=== PATIENT | female | born 1955 | race Caucasian/White ===

== ENCOUNTER → 2017-08-06 07:21 | Emergency (ER) | payer SELFPAY ==
[~2017-08-06 07:21] MED LIST: PPD test dose* 5 TU/0.1 ML TEST (*USE PPD ORDER SET*) INTRADERM ONE; PPD test dose* 5 TU/0.1 ML TEST (*USE PPD ORDER SET*) ONE
== END | disposition home or self-care (01) ==
LOC: UCEAST 07:21 → OHEAST 07:21
DX: Z11.1 Encounter for screening for respiratory tuberculosis (principal)

== ENCOUNTER 2018-08-09 06:21 | Day surgery (SDC) | payer OTHER ==
[~2018-08-09 06:21] MED LIST changes: +Acetaminophen TAB* 325 MG PO PRN; +Buffered Lidocaine 0.9% SYRIN* 5 ML/SYR SYRINGE INTRADERM ONE; -PPD test dose* 5 TU/0.1 ML TEST (*USE PPD ORDER SET*) INTRADERM ONE; -PPD test dose* 5 TU/0.1 ML TEST (*USE PPD ORDER SET*) ONE
[2018-08-09] MEDS ORDERED: fentaNYL* 50 MCG/ML 2 ML VIAL (100 MCG VIAL) ONE (07:22)
[2018-08-09] MEDS ORDERED: Midazolam* 1 MG/ML 2 ML VIAL (2 MG) ONE (07:22)
[2018-08-09] MEDS ORDERED: Tetracaine 0.5% OPTH.SOL 4 ML* 1 DROP BTL ONE (08:30)
[2018-08-09] MEDS ORDERED: Lidocaine 1%* 5 ML VIAL ONE (08:30)
[2018-08-09] MEDS ORDERED: Neomycin/Polymy/Dex OPHTH.OIN* 3.5 GM ONE (08:30)
[2018-08-09] MEDS ORDERED: Cyclopentolate 1% OPTH.SOL* 2 ML BTL ONE (08:30)
[2018-08-09] MEDS ORDERED: Tropicamide 1% OPTH.SOL* BTL ONE (08:30)
[2018-08-09] MEDS ORDERED: Ketorolac 0.5% OPHTH (NF) 0.5 % 5 ML BTL ONE (08:30)
[2018-08-09] MEDS ORDERED: Phenylephrine 2.5% OPTH.SOL* 2 ML BTL ONE (08:30)
[2018-08-09 08:36] VITALS: BP 118/56
--- NOTE | 2018-08-10 02:18 | OP ---
DATE OF OPERATION: 08/09/18 - [facility] DATE OF : 51 SURGEON: Dr. Darren Rey. [employer] CERTIFIED NETWORK ASSOCIATE: None. ANESTHESIA: Topical with intravenous sedation. PRE-OP DIAGNOSIS: Cataract with astigmatism, right eye. POST-OP DIAGNOSIS: Cataract with astigmatism, right eye. OPERATIVE PROCEDURE: Phacoemulsification and cataract extraction with posterior chamber Toric intraocular lens implant, right eye. COMPLICATIONS: None. BLOOD LOSS: None. DESCRIPTION OF PROCEDURE: The patient was seen preoperatively in the holding area where she was placed in an upright position. A shakir was made at the 6 o' clock position of the cornea near the limbus in the right eye. The patient was subsequently brought to the operating room and given intravenous sedation and a drop of tetracaine to her right eye. The patient was prepped and draped in the usual sterile fashion for ophthalmic surgery and attention was directed into the right eye where a speculum was placed. A paracentesis was created at the 11 o'clock position and 0.1 cc of 1% preservative-free lidocaine was injected into the anterior chamber followed by DisCoVisc. The eye was digitally stabilized while a 2.75 mm keratome was used to create a triplanar clear corneal incision at the 9 o'clock position. A continuous curvilinear capsulorrhexis was created with a cystotome and Utrata forceps. BSS on a cannula was used to hydrodissect the lens from the capsule. Phacoemulsification was performed in a divide and conquer technique to create four fragments, which were removed. Residual cortical material was removed with irrigation and aspiration. Healon was used to inflate the capsular bag. A Nicholson marker was used to shakir the 82-degree axis at the limbus. An SN6AT4 10.5 diopter lens was folded and inserted into the capsular bag. A Sinskey hook was used to rotate the lens to appropriate axial alignment. Irrigation and aspiration were performed to remove viscoelastic from the eye. BSS on a cannula was used to hydrate the corneal stroma and seal the wound. At the end of the case, the lens was centered stable and axially aligned. The eye pressure appeared normal and the wound was water tight. The speculum was removed and topical Maxitrol ointment was placed on the surface of the eye. The eye was closed, patched, and shielded, and the patient was sent to the recovery room in stable condition with postoperative instructions and followup appointment given. [id number]/[facility] #: [id number] ANTONIO
== END 2018-08-09 08:49 | disposition home or self-care (01) ==
LOC: OREAST 06:21
PROVIDERS: ATTEND Ophthalmology
DX: H25.11 Age-related nuclear cataract, right eye (principal); H52.201 Unspecified astigmatism, right eye; F32.9 Major depressive disorder, single episode, unspecified
CPT/HCPCS: A9270-GY; J2250; J3010; V2787